=== PATIENT | female | born 1980 | race Caucasian/White ===

== ENCOUNTER 2018-09-23 02:12 | Emergency (ER) | payer BC, SELFPAY ==
[2018-09-23 02:13] VITALS: BP 185/113; PULSE 105; RESP 16; TEMP 36.8; O2SAT 99; BMI 32.7
--- NOTE | 2018-09-23 02:43 | EKG12_ITS ---
Test Reason : HYPERTENSION Blood Pressure : / mmHG Vent. Rate : 086 BPM Atrial Rate : 086 BPM P-R Int : 158 ms QRS Dur : 080 ms QT Int : 364 ms P-R-T Axes : 040 020 011 degrees QTc Int : 435 ms Normal sinus rhythm Normal ECG Confirmed by LEA PETERSON, VAISHALI ([id number]), brands editor ASIM GAMBOA ([id number] on 09/26/2018 9:02:28 AM Referred By: ROSA Confirmed By:VAISHALI TATE MD
--- NOTE | 2018-09-23 02:44 | ED.VISSUMM ---
- ER Visit Summary Date of Service: 09/23/18 Chief Complaint: Hypertension and headache History of Present Illness: The patient is a 37 F who presents with elevated blood pressure and headache that she noticed today. Patient states she woke up this evening and took her blood pressure. Patient states her blood pressure at home was 168/112. Patient states she has a frontal and occipital headache. Patient describes as as throbbing. Patient states she had been on hydrochlorothiazide for her blood pressure but has not followed up with her doctor and has not had this medication for the past 2 months. Physical Examination: Vital signs are stable except for an elevated blood pressure 185/113. Patient is afebrile. Patient is in no acute distress. Oral mucosa is pink and moist. Neck is supple. Trachea is midline. There is no JVD noted. Heart was regular rate and rhythm. Lungs are clear and equal bilaterally. Abdomen is soft and nontender. Cranial nerves II through XII are intact. There are no focal motor or sensory deficits noted. The remaining physical exam is within normal limits. Test Results: CBC, basic metabolic profile, and troponin were obtained and were normal. EKG showed normal sinus rhythm with a rate of 86. There are no acute ST or T wave changes noted. Emergency Department Course and Treatment: Patient was given a dose of amlodipine here. Patient's blood pressure improved to 140/95. Patient states her headache has improved. Patient was given a short-term prescription for amlodipine for the next 5 days. Patient was instructed to follow-up with her primary care physician in 5-7 days. Patient understood and was agreeable with the plan. All questions were answered. Disposition: Discharge home Impression: Hypertension This note was generated with [employer] dictation software. It may contain incorrect words, spelling, and punctuation that were not noted in review of the chart prior to signing ED Disposition - Plan for ED Patient: Disposition: Home or Assisted Living Diagnosis: Hypertension Instructions: ED HTN Established Prescriptions: Amlodipine [Norvasc] 2.5 mg PO DAILY #5 tab Referrals: Darien Beard MD [Primary Care Provider] - 3-5 Days
[2018-09-23] MEDS: amLODIPine 2.5 MG Tablet PO (02:54)
[2018-09-23 03:12] LABS: Absolute Lymphocyte Count 1.78 X10^3/ul (0.83-4.51); Absolute Neutrophil Count 4.6 X10^3/uL (2.0-7.7); Basophil# 0.02 X10^3/uL; Basophil% 0.3 % (0-1); Eosinophil# 0.22 X10^3/uL; Eosinophils% 3.1 % (0-5); Hematocrit 43.1 % (37-47); Hemoglobin 14.3 g/dl (12.0-15.0); Lymphocyte # 1.78 X10^3/ul (4.0); Lymphocyte % 25.4 % (19-41); Mean Corp Hgb Conc 33.2 g/gl (32-36); Mean Corpuscular Hgb 30.1 pg (27.0-32.0); Mean Corpuscular Volume 90.7 fL (81-99); Mean Platelet Vol. 9.8 fl (6.2-12.0); Monocyte# 0.36 X10^3/uL; Monocyte% 5.1 % (0-10); Neutrophil # 4.63 X10^3/uL (2.7-7.7); Platelet Count 265 K/mm3 (150-450); RBC Distribution Width CV 13.4 % (11.6-14.6); RBC Distribution Width SD 44.4 fl (35.1-43.9); Red Blood Count 4.75 M/mm3 (4.2-5.4)
[2018-09-23 03:15] LABS: POSITIVE COUNT NO; POSITIVE DIFFERENTIAL NO; POSITIVE MORPHOLOGY NO
[2018-09-23 03:24] LABS: Anion Gap 6 (5-15); BUN 11 mg/dL (7-18); BUN/Creat Ratio 11.9 RATIO (10-20); Calcium,Total 8.6 mg/dL (8.5-10.1); Chloride 109 mmol/L (98-107); Creatinine, Serum 0.93 mg/dL (0.55-1.02); EST Glomerular Filtration Rate 72 mL/min (>60); Est Glom Filt Rate - Afr Amer 88 mL/min (>60); Glucose 94 mg/dL (74-106); Potassium 3.8 mmol/L (3.5-5.1); Sodium Level 142 mmol/L (136-145)
[2018-09-23 03:47] VITALS: BP 131/98; PULSE 87; RESP 16; O2SAT 96
== END 2018-09-23 03:50 | disposition home or self-care (01) ==
PROVIDERS: Emergency Provider Emergency Medicine; Family Provider Family Medicine; PCP Family Medicine
DX: I10 Essential (primary) hypertension (principal); E66.9 Obesity, unspecified; Z68.32 Body mass index [BMI] 32.0-32.9, adult; Z72.0 Tobacco use
CPT/HCPCS: 80048; 84484; 85025; 93005; 99285; A4216

== ENCOUNTER 2020-05-02 07:32 | Emergency (ER) | payer BC, SELFPAY ==
[2020-05-02] VITALS (8 sets, daily range): BP systolic 110–173; BP diastolic 70–116; PULSE 80–108; RESP 16–21; TEMP 36.7–39.4; O2SAT 94–97; BMI 31.6
--- NOTE | 2020-05-02 07:54 | RAD_ITS ---
STUDY: X-RAY CHEST REASON FOR EXAM: Female, 39 years old. Shortness of breath, cough and fever TECHNIQUE: Single AP portable view of the chest. COMPARISON: None. FINDINGS: The lungs are clear and expanded. There is no demonstrated pleural abnormality. Normal size heart. Normal mediastinum and veronica. Normal visualized pulmonary arteries. Normal visualized aortic arch and descending thoracic aorta. Normal visualized thoracic spine. Normal visualized ribs, clavicles, and shoulders. There is no demonstrated abnormality of the visualized soft tissue structures of the upper abdomen. RAD/Chest 1 View (Portable) IMPRESSION: Normal x-ray examination of the chest. Electronically Signed: Karis Gonzalez, at 10:04 EST Tel , Service support ,
--- NOTE | 2020-05-02 07:56 | ED.VISSUMM ---
- ER Visit Summary Date of Service: 05/02/20 Chief Complaint: Shortness of breath History of Present Illness: The patient is a 39 F who presents with shortness of breath that has been getting worse since yesterday. Patient states she feels a tightness in her chest. Patient states it has been constant. Patient admits to a fever of 103.8 at home. Patient admits to a cough but denies any sputum production. Patient admits to chills. Patient admits to some rhinorrhea and sore throat. Patient states that Motrin has been helping with her fever. Patient states her is COVID-19 positive. Patient states she has had 2 negative COVID-19 test. Physical Examination: Vital signs are stable. Patient is afebrile. Patient is in no acute distress. Oral mucosa is pink and moist. Neck is supple. Trachea is midline. There is no JVD. Heart was regular rate and rhythm. Lungs are clear and equal bilaterally. Abdomen is soft. Bowel sounds are normal. There is some right lower quadrant tenderness. There is no rebound or guarding noted. Cranial nerves II through XII are intact. There are no focal motor or sensory deficits. Extremities are intact. There is no calf tenderness or edema. Test Results: CBC shows a mild leukocytosis of 14.2. Comprehensive metabolic profile and lipase were within normal limits. hCG was negative. Lactate was normal. Portable 1 view chest x-ray was obtained. On my interpretation, lung [place] are clear. There is normal cardiac silhouette. Bony thorax is normal. There is no acute process noted. Radiologist also interpreted the x-ray and agrees. CT scan of the abdomen pelvis was obtained. There is evidence of pyelonephritis on the right kidney. This was interpreted by the radiologist and reviewed by myself. Urinalysis showed positive nitrates and a leukocyte esterase of 50. There is 2+ bacteria. Emergency Department Course and Treatment: Patient was given IV fluids, morphine, and Zofran. Patient did develop a fever here in the emergency department. Patient was given a dose of Tylenol for this. Patient was able to keep down p.o. Tylenol. Patient was given a dose of IV Rocephin. Patient was given a prescription for Cipro. Patient was instructed to drink plenty of fluids. Patient was instructed to follow-up with her primary care physician in 3-5 days. Patient understood and was agreeable with the plan. All questions were answered. Disposition: Discharge home Impression: 1. Pyelonephritis This note was generated with [employer] dictation software. It may contain incorrect words, spelling, and punctuation that were not noted in review of the chart prior to signing ED Disposition - Plan for ED Patient: Disposition: Home or Assisted Living Diagnosis: Pyelonephritis Instructions: ED Pyelonephritis Female Adult Prescriptions: Ciprofloxacin [Cipro] 500 mg PO BID #20 tab Prescription Printed Referrals: Darien Beard MD [Primary Care Provider] - 3-5 Days
--- NOTE | 2020-05-02 07:58 | CT_ITS ---
STUDY: CT ABDOMEN AND PELVIS WITH CONTRAST REASON FOR EXAM: Female, 39 years old. ABD PAIN, COUGH, SOB, FEVER, CHILLS, HAWKINS, SPOUSE HAS COVID, ELEV WBC, HTN, BASHIR RADIATION DOSAGE (If Supplied By Facility): CTDIvol = ( 16.20 ) mGy, DLP = ( 2080.30 ) mGycm TECHNIQUE: Transaxial images were obtained from the dome of the diaphragm to the symphysis pubis with oral contrast. Oral and amp; IV Gastrografin and amp; 100mL Isovue-370 was administered. Sagittal and coronal images were reconstructed. Individualized dose optimization techniques were used for this CT. COMPARISON: None. FINDINGS: The visualized lung bases are unremarkable. The visualized portions of the heart are within normal limits. Normal liver. There are surgical clips in the gallbladder fossa consistent with a prior cholecystectomy. Normal spleen. Normal pancreas. Normal bilateral adrenal glands. There are multiple mild ill-defined regions of hypodensity and loss of cortical medullary distinction in the right renal upper, mid and lower pole, The largest of these in the upper pole measuring approximately 2.2 cm. Normal left kidney. No hydronephrosis . Small nonobstructing right lower pole renal pelvic stone old. Normal visualized stomach. Normal small intestine. Normal colon. The appendix is visualized and appears normal. Normal abdominal aorta. Normal inferior vena cava. Normal retroperitoneum. Normal urinary bladder. Normal abdominal wall. Normal osseous structures. CT/Abdomen/Pelvis WITH Contrast IMPRESSION: Ill-defined regions of hypodensity and loss of cortical medullary distinction in the right renal upper, mid and lower pole are in keeping with pyelonephritis. Early phlegmon cannot be excluded. Normal left kidney. Electronically Signed: Karis Gonzalez, at 11:17 EST Tel , Service support ,
[2020-05-02] MEDS: 0.9% Normal Saline 1,000 ML 1000 ML IV (08:07)
[2020-05-02] MEDS: Morphine 4 MG/ML Syringe IV ×2 (08:08→10:56)
[2020-05-02] MEDS: Ondansetron 4 MG/2 ML Vial IV ×2 (08:08→10:56)
[2020-05-02 08:39] LABS: Absolute Lymphocyte Count 1.13 X10^3/uL (0.83-4.51); Absolute Neutrophil Count 11.7 X10^3/uL (2.0-7.7); Basophil# 0.04 X10^3/uL; Basophil% 0.3 % (0-1); Eosinophil# 0.02 X10^3/uL; Eosinophils% 0.1 % (0-5); Hematocrit 41.2 % (37-47); Hemoglobin 13.3 g/dL (12.0-15.0); Lymphocyte # 1.13 X10^3/ul (4.0); Mean Corp Hgb Conc 32.3 g/dL (32-36); Mean Corpuscular Hgb 29.8 pg (27.0-32.0); Mean Corpuscular Volume 92.2 fL (81-99); Mean Platelet Vol. 10.2 fl (6.2-12.0); Monocyte# 1.21 X10^3/uL; Monocyte% 8.5 % (0-10); NRBC Flagged by Analyzer 0 % (0-5); Neutrophil % 82.7 % (47-70); Platelet Count 241 K/mm3 (150-450); RBC Distribution Width CV 12.8 % (11.6-14.6); RBC Distribution Width SD 43.6 fl (35.1-43.9); Red Blood Count 4.47 M/mm3 (4.2-5.4); White Blood Count 14.2 K/mm3 (4.4-11.0)
[2020-05-02 08:47] LABS: Internal QC Validated? YES +Cl - CLEAR BKGD; Pregnancy, Serum, hCG Quali. NEGATIVE Negative
[2020-05-02 08:54] LABS: ALB/GLOB Ratio 0.6 RATIO (0.9-2.4); AST(SGOT) 25 U/L (15-37); Alanine Aminotransfer ALT/SGPT 55 U/L (13-56); Albumin, Serum 3.3 g/dL (3.2-5.0); Alkaline Phosphatase 113 U/L (45-117); Anion Gap 5 (5-15); BUN 10 mg/dL (7-18); BUN/Creat Ratio 8.8 RATIO (10-20); Calcium,Total 9.1 mg/dL (8.5-10.1); Chloride 106 mmol/L (98-107); Creatinine, Serum 1.14 mg/dL (0.55-1.02); EST Glomerular Filtration Rate 57 mL/min (>60); Est Glom Filt Rate - Afr Amer 68 mL/min (>60); Globulin 5.3 g/dL (2.2-4.2); Glucose 105 mg/dL (74-106); Lipase 68 U/L (73-393); Potassium 3.3 mmol/L (3.5-5.1); Protein, Total 8.6 g/dL (6.4-8.2); Sodium Level 140 mmol/L (136-145)
[2020-05-02 09:07] LABS: Lactic Acid 0.8 mmol/L (0.4-1.9)
[2020-05-02] MEDS: Acetaminophen 500 MG Tablet 1000 MG PO (10:56)
[2020-05-02 11:06] LABS: Mucous, Urine 0 SEEN /hpf (<or=2+)
[2020-05-02 11:15] LABS: Color, Urine Yellow (Yellow); Glucose, Dipstick Normal (Normal); Ketone-Dipstick 5 mg/dl (Negative); Leukocyte Esterase-Dipstick 25 /ul (Negative); Nitrite-Dipstick Positive (Negative); Occult Blood-Urine 50 /ul (Negative); Protein-Dipstick 30 mg/dl (Negative); Specific Gravity, Urine 1.005 (1.002-1.030); Urine Bilirubin Dipstick Negative (Negative); Urine Clarity Clear (Clear); Urine Urobilinogen Normal (Normal); Urine pH 6.5 (5.0 - 8.0)
[2020-05-02 11:32] LABS: Bacteria 2+ /hpf (None Seen); Red Blood Cells-Urine 0-5 SEEN /hpf (0-5); Squamous Epithelial Cells - UA 0-5 SEEN /hpf (5-10); White Blood Cells 0-5 SEEN /hpf (0-5)
--- NOTE | 2020-05-02 12:26 | NURSING ---
it been 56 minutes since the rocephin was ordered, called pharmacy and was told that they were checking it.
[2020-05-02] MEDS: Ceftriaxone 1 GM/50 ML BAG IV (12:30)
== END 2020-05-02 13:58 | disposition home or self-care (01) ==
PROVIDERS: Emergency Provider Emergency Medicine; PCP Family Medicine
DX: N12 Tubulo-interstitial nephritis, not specified as acute or chronic (principal); F17.200 Nicotine dependence, unspecified, uncomplicated
CPT/HCPCS: 71045; 74177; 80053; 81001; 83605; 83690; 84703; 85025; 87086; 87088; 87186; 96361; 96365; 96375; 96376; 99285; J7030; Q9967; A4216; J2405